=== PATIENT | female | born 1970 | race Two or more races ===

== ENCOUNTER 2022-10-26 11:55 | Inpatient (IN) | payer BC ==
[~2022-10-26] VITALS: Ht 157.5 cm; Wt 71.2 kg
[2022-10-26] MEDS ORDERED: CEPH500C2 PO (13:37)
[2022-10-26] MEDS ORDERED: SULF1TAB48 PO (13:37)
[2022-10-26] MEDS ORDERED: ACET-2605 PO (13:37)
[2022-10-26] MEDS ORDERED: CEFAZOLIN 1 GM VIAL IM SCH (14:00)
[2022-10-26 14:38] LABS: BASOPHILS % (AUTO) 0.7 % (0.0-2.0); EOSINOPHILS # (AUTO) 0.2 K/uL (0.0-0.7); EOSINOPHILS % (AUTO) 3.1 % (0.0-6.0); HEMATOCRIT 39 % (33-45); HEMOGLOBIN 13.3 g/dL (11.5-14.8); LYMPHOCYTES # (AUTO) 1.7 K/uL (0.8-4.8); LYMPHOCYTES % (AUTO) 29.7 % (20.0-44.0); MEAN CORPUSCULAR HEMOGLOBIN 31 PG (26.0-33.0); MEAN CORPUSCULAR HGB CONC 34 g/dl (31.0-36.0); MEAN CORPUSCULAR VOLUME 91 fL (82-100); MONOCYTES # (AUTO) 0.3 K/uL (0.1-1.30); MONOCYTES % (AUTO) 5.1 % (2.0-12.0); NEUTROPHILS # (AUTO) 3.5 K/uL (1.8-8.9); NEUTROPHILS % (AUTO) 61.4 % (43.0-81.0); PLATELET COUNT (AUTO) 279 K/uL (150-450); RED BLOOD CELL COUNT(AUTO) 4.29 MIL/uL (4.0-5.2); RED CELL DISTRIBUTION WIDTH 12.2 % (11.5-15.0); WHITE BLOOD COUNT (AUTO) 5.7 K/uL (4.3-11.0)
[2022-10-26] MEDS: CEFAZOLIN 2 GM in IV D5W 100 ML IV SCH ×2 (15:37→23:43)
[2022-10-26 16:00] VITALS: BP 116/59; TEMP 98; O2SAT 97
[2022-10-26] MEDS: VANCOMYCIN 1 GM in IV D5W 250 ML IV SCH (16:22)
[2022-10-26] MEDS ORDERED: ACETAMINOPHEN 325 MG TABLET PO PRN (19:00)
[2022-10-26 20:00] VITALS: BP 109/68; TEMP 98.2; O2SAT 95
[2022-10-26 20:21] LABS: BASOPHILS % (AUTO) 0.4 % (0.0-2.0); EOSINOPHILS # (AUTO) 0.2 K/uL (0.0-0.7); EOSINOPHILS % (AUTO) 3.6 % (0.0-6.0); HEMATOCRIT 40 % (33-45); HEMOGLOBIN 13.7 g/dL (11.5-14.8); LYMPHOCYTES # (AUTO) 2.3 K/uL (0.8-4.8); MEAN CORPUSCULAR HEMOGLOBIN 31 PG (26.0-33.0); MEAN CORPUSCULAR HGB CONC 34 g/dl (31.0-36.0); MEAN CORPUSCULAR VOLUME 91 fL (82-100); MONOCYTES # (AUTO) 0.3 K/uL (0.1-1.30); MONOCYTES % (AUTO) 5.6 % (2.0-12.0); NEUTROPHILS # (AUTO) 3.2 K/uL (1.8-8.9); NEUTROPHILS % (AUTO) 53.4 % (43.0-81.0); PLATELET COUNT (AUTO) 291 K/uL (150-450); RED BLOOD CELL COUNT(AUTO) 4.44 MIL/uL (4.0-5.2); RED CELL DISTRIBUTION WIDTH 12.3 % (11.5-15.0); WHITE BLOOD COUNT (AUTO) 6.1 K/uL (4.3-11.0)
[2022-10-26] MEDS: HYDROCODONE/APAP 5/325MG TABLET PO PRN (22:05)
[2022-10-27 03:43] LABS: APPEARANCE,URINE CLEAR (CLEAR); BILIRUBIN,URINE NEGATIVE (NEGATIVE); BLOOD, URINE TRACE-INTA Ery/uL (NEGATIVE); COLOR,URINE YELLOW (YELLOW); KETONES,URINE NEGATIVE (NEGATIVE); LEUKOCYTE ESTERASE ,URINE NEGATIVE (NEGATIVE); NITRITE, URINE NEGATIVE (NEGATIVE); PH,URINE 6.5 (5.0-8.0); PROTEIN,URINE NEGATIVE (NEGATIVE); UGLUCOSE NEGATIVE (NEGATIVE); UROBILINOGEN,URINE 0.2 EU/dL (0.2)
[2022-10-27] MEDS: VANCOMYCIN 1 GM in IV D5W 250 ML IV SCH (03:53)
[2022-10-27 04:00] VITALS: BP 102/62; TEMP 98.8; O2SAT 100
[2022-10-27 07:15] LABS: CALCIUM, SERUM 9.2 mg/dL (8.5-10.1); CREATININE 0.7 mg/dL (0.6-1.3); POTASSIUM 3.8 mmol/L (3.5-5.1)
[2022-10-27 08:00] VITALS: BP 125/71; TEMP 97.9; O2SAT 100
[2022-10-27] MEDS: CEFAZOLIN 2 GM in IV D5W 100 ML IV SCH ×3 (08:34→22:13)
[2022-10-27 08:47] LABS: ALBUMIN 3.8 g/dL (3.4-5.0); BILIRUBIN,DIRECT 0.1 mg/dL (0.0-0.2); BILIRUBIN,TOTAL 0.4 mg/dL (0.2-1.0)
[2022-10-27 16:00] VITALS: BP 118/71; TEMP 98.5
[2022-10-27 18:47] LABS: HIV-1 p24 ANTIGEN NON REACTIVE (NONREACTIVE); HIV-1/2 ANTIBODY NON REACTIVE (NONREACTIVE)
[2022-10-28 04:00] VITALS: BP 110/63; TEMP 97.9; O2SAT 99
[2022-10-28] MEDS: CEFAZOLIN 2 GM in IV D5W 100 ML IV SCH ×3 (06:01→22:28)
[2022-10-28 07:39] LABS: BASOPHILS % (AUTO) 0.7 % (0.0-2.0); EOSINOPHILS # (AUTO) 0.3 K/uL (0.0-0.7); EOSINOPHILS % (AUTO) 4.3 % (0.0-6.0); HEMATOCRIT 41 % (33-45); HEMOGLOBIN 13.5 g/dL (11.5-14.8); LYMPHOCYTES % (AUTO) 34.3 % (20.0-44.0); MEAN CORPUSCULAR HEMOGLOBIN 31 PG (26.0-33.0); MEAN CORPUSCULAR HGB CONC 33 g/dl (31.0-36.0); MEAN CORPUSCULAR VOLUME 93 fL (82-100); MONOCYTES # (AUTO) 0.3 K/uL (0.1-1.30); MONOCYTES % (AUTO) 5.9 % (2.0-12.0); NEUTROPHILS # (AUTO) 3.2 K/uL (1.8-8.9); NEUTROPHILS % (AUTO) 54.8 % (43.0-81.0); PLATELET COUNT (AUTO) 245 K/uL (150-450); RED BLOOD CELL COUNT(AUTO) 4.34 MIL/uL (4.0-5.2); RED CELL DISTRIBUTION WIDTH 12.3 % (11.5-15.0); WHITE BLOOD COUNT (AUTO) 5.9 K/uL (4.3-11.0)
[2022-10-28 07:45] LABS: CALCIUM, SERUM 9.1 mg/dL (8.5-10.1); CREATININE 0.6 mg/dL (0.6-1.3)
[2022-10-28 08:00] VITALS: BP 102/65; TEMP 98.1; O2SAT 100
[2022-10-28] MEDS: HYDROCODONE/APAP 5/325MG TABLET PO PRN ×2 (14:46→22:27)
[2022-10-28 16:00] VITALS: BP 115/70; TEMP 98.2; O2SAT 98
[2022-10-28 20:00] VITALS: BP 118/60; TEMP 97.7; O2SAT 98
[2022-10-28 23:55] VITALS: BP 116/60; TEMP 98; O2SAT 98
[2022-10-29] VITALS: BP 116/60; TEMP 98; O2SAT 98
[2022-10-29 08:00] VITALS: BP 103/66; TEMP 97.9; O2SAT 98
[2022-10-29] MEDS: CEFAZOLIN 2 GM in IV D5W 100 ML IV SCH ×3 (08:06→23:35)
[2022-10-29] MEDS: HYDROCODONE/APAP 5/325MG TABLET PO PRN ×2 (08:58→20:13)
[2022-10-29 12:54] LABS: CALCIUM, SERUM 9.1 mg/dL (8.5-10.1); CREATININE 0.6 mg/dL (0.6-1.3); POTASSIUM 3.7 mmol/L (3.5-5.1)
[2022-10-29 16:00] VITALS: BP 112/60; TEMP 98; O2SAT 100
[2022-10-29 20:00] VITALS: BP 109/63; TEMP 98; O2SAT 98
[2022-10-30] VITALS: BP 109/63; TEMP 98; O2SAT 98
[2022-10-30 04:00] VITALS: BP 109/63; TEMP 98; O2SAT 98
[2022-10-30] MEDS: CEFAZOLIN 2 GM in IV D5W 100 ML IV SCH ×2 (07:16→15:28)
[2022-10-30 07:52] LABS: CALCIUM, SERUM 9.3 mg/dL (8.5-10.1); CREATININE 0.6 mg/dL (0.6-1.3); POTASSIUM 3.8 mmol/L (3.5-5.1)
[2022-10-30 08:00] VITALS: BP 112/65; TEMP 98.5; O2SAT 98
[2022-10-30] MEDS: HYDROCODONE/APAP 5/325MG TABLET PO PRN ×2 (08:37→17:04)
[2022-10-30 16:00] VITALS: BP 120/68; TEMP 98.5; O2SAT 98
== END 2022-10-30 19:10 | disposition home health service (06) | DRG 902 ==
LOC: MEDSG1 13:05
PROVIDERS: ADMIT Nurse Practitioner Family
PROC: 0JB80ZZ Excision of Abdomen Subcutaneous Tissue and Fascia, Open Approach (ICD-10-PCS; principal; 2022-10-27)
PROC: 0JBL0ZZ Excision of Right Upper Leg Subcutaneous Tissue and Fascia, Open Approach (ICD-10-PCS; 2022-10-27)
PROC: 05H633Z Insertion of Infusion Device into Left Subclavian Vein, Percutaneous Approach (ICD-10-PCS; 2022-10-29)
PROC: B547ZZA Ultrasonography of Left Subclavian Vein, Guidance (ICD-10-PCS; 2022-10-29)
DX: T81.31XA Disruption of external operation (surgical) wound, not elsewhere classified, initial encounter (principal); L03.319 Cellulitis of trunk, unspecified; R78.81 Bacteremia; Z98.890 Other specified postprocedural states; Y83.8 Other surgical procedures as the cause of abnormal reaction of the patient, or of later complication, without mention of misadventure at the time of the procedure; B95.61 Methicillin susceptible Staphylococcus aureus infection as the cause of diseases classified elsewhere; Y92.89 Other specified places as the place of occurrence of the external cause; Z98.891 History of uterine scar from previous surgery; Z98.51 Tubal ligation status
CPT/HCPCS: 36415; 80048-TC; 80076-TC; 80202-TC; 85025-TC; 86803; 87040-TC; 87081-TC; 87806; 93307-TC; A4223; A6253; A6403; G0378; J0690; J3370; J7050; J7060